=== PATIENT | male | born 1950 | race African-American/Black ===

== ENCOUNTER 2017-06-18 12:10 | Emergency (ER) | payer MEDICARE ==
[~2017-06-18] VITALS: Ht 182.9 cm; Wt 91.0 kg
[2017-06-18 12:12] VITALS: Ht 182.9 cm; Wt 91.0 kg
[2017-06-18] MEDS ORDERED: LOSA25TA5 PO (13:16)
[2017-06-18] MEDS ORDERED: SILD25TA5 PO (13:16)
[2017-06-18] MEDS ORDERED: FURO-110 PO (13:16)
--- NOTE | 2017-06-18 13:47 | ERD ---
ER Documentation Chief Complaint Date/Time DATE: 06/18/17 TIME: 13:43 Chief Complaint pt requesting medication refill HPI 67 year old male with a history of mitral valve regurgitation, Requesting medication refill for furosemide, also losartan, and he takes sildenafil as needed. Patient states that due to recent insurance change, he is not able see a occupational safety specialist and needs a repeat refill of these medications in the meantime. He denies chest pain, dizziness, shortness of breath, palpitations, syncope. ROS All systems reviewed and are negative except as per history of present illness. Medications Home Meds Active Scripts Sildenafil Citrate* (Viagra*) 25 Mg Tablet, 25 MG PO DAILY Y for relations, #20 TAB Prov:ANTONINO RICHARDSON PA-C 06/18/17 Losartan Potassium* (Losartan Potassium*) 25 Mg Tablet, 25 MG PO BID, #60 TAB Prov:ANTONINO RICHARDSON PA-C 06/18/17 Furosemide* (Lasix*) 20 Mg Tablet, 20 MG PO DAILY, #30 TAB Prov:ANTONINO RICHARDSON PA-C 06/18/17 Allergies Allergies: Coded Allergies: No Known Allergy (Unverified , 06/18/17) PMhx/Soc History of Surgery: Yes (Tonsillectomy, knee replacement.) Hx Cardiac Disorders: Yes (Mitral valve regurgitation) Physical Exam Vitals Vital Signs Date Time Temp Pulse Resp B/P Pulse Ox O2 Delivery O2 Flow Rate FiO2 06/18/17 12:12 97.8 73 18 111/69 100 Physical Exam General: Well-developed, well-nourished. The patient appears in no acute distress. HEENT: Head is normocephalic, atraumatic. No scleral icterus. Pupils are equal , round, and reactive. Oral mucous membranes are moist. No pharyngeal erythema. Neck: Supple. Nontender. Lungs: Clear to auscultation. Normal air movement. Heart: Regular rate and rhythm. S1 and S2 are normal. No murmurs, gallops, or rubs. Abdomen: Soft, nontender, nondistended. Bowel sounds are normoactive. Extremities: No clubbing or cyanosis. Normal pulses. Moving extremities x 4. No weakness. Neurologic: Alert and oriented 3. No focal deficits. Skin: Normal turgor. No rash or lesions. Procedures/MDM 67-year-old male comes in for medication refill, patient will be given frusemide , as well as losartan. He is aware that the sildenafil can lower blood pressure , and before sexual activity he is to discontinue the losartan 1-2 days prior. This was discussed with his occupational safety specialist previously and he understands that he is to take these medications in a safe manner. He is aware that he needs to follow-up with cardiology, he will be given a list of primary care follow-up as well as referral information occupational safety specialist. Departure Diagnosis: Primary Impression: Mitral valve regurgitation Additional Impression: Encounter for medication refill Condition: Good Patient Instructions: Taking Medicine Safely, Heart Valve Problems: Mitral Insufficiency, Sildenafil Citrate Oral tablet Referrals: REYNOLD PAZ [facility] YOU HAVE RECEIVED A MEDICAL SCREENING EXAM AND THE RESULTS INDICATE THAT YOU DO NOT HAVE A CONDITION THAT REQUIRES URGENT TREATMENT IN THE EMERGENCY DEPARTMENT. FURTHER EVALUATION AND TREATMENT OF YOUR CONDITION CAN WAIT UNTIL YOU ARE SEEN IN YOUR DOCTORS OFFICE WITHIN THE NEXT 1-2 DAYS. IT IS YOUR RESPONSIBILITY TO MAKE AN APPOINTMENT FOR FOLOW-UP CARE. IF YOU HAVE A PRIMARY DOCTOR --you should call your primary doctor and schedule an appointment IF YOU DO NOT HAVE A PRIMARY DOCTOR YOU CAN CALL OUR PHYSICIAN REFERRAL HOTLINE AT IF YOU CAN NOT AFFORD TO SEE A PHYSICIAN YOU CAN CHOSE FROM THE FOLLOWING [facility] [address] [facility]. [facility] [address] [facility] [facility] [address] [facility] [facility] [address] [facility]. [facility] [address] [facility] [facility]. [address] [facility]. [facility] YOU HAVE RECEIVED A MEDICAL SCREENING EXAM AND THE RESULTS INDICATE THAT YOU DO NOT HAVE A CONDITION THAT REQUIRES URGENT TREATMENT IN THE EMERGENCY DEPARTMENT. FURTHER EVALUATION AND TREATMENT OF YOUR CONDITION CAN WAIT UNTIL YOU ARE SEEN IN YOUR DOCTORS OFFICE WITHIN THE NEXT 1-2 DAYS. IT IS YOUR RESPONSIBILITY TO MAKE AN APPOINTMENT FOR FOLOW-UP CARE. IF YOU HAVE A PRIMARY DOCTOR --you should call your primary doctor and schedule and appointment IF YOU DO NOT HAVE A PRIMARY DOCTOR YOU CAN CALL OUR PHYSICIAN REFERRAL HOTLINE AT . IF YOU CAN NOT AFFORD TO SEE A PHYSICIAN YOU CAN CHOSE FROM THE FOLLOWING [facility] INSTITUTIONS: [facility] [address] [place] [address] [facility] [address] [place] [address] [facility] [address] [place] [address] [facility] URGENT CARE/SPECIALTIES Additional Instructions: [employer]: YOU HAVE A MEDICAL CONDITION WHICH REQUIRES YOU TO SEE A SPECIALIST WITHIN THE NEXT 1 WEEK. PLEASE FOLLOW UP WITH YOUR PRIMARY PHYSICIAN FOR REFFERAL.IF YOU DO NOT HAVE A PRIMARY CARE PHYSICIAN AND/OR YOU CAN NOT AFFORD TO SEE A PHYSICIAN THE FOLLOWING RESOURCES HAVE BEEN SUPPLIED TO YOU. IT IS YOUR RESPONSIBILITY TO BE SEEN BY THE SPECIALIST ANTONINO RICHARDSON PA-C Jun 18, 2017 13:47
== END 2017-06-18 13:46 | disposition home or self-care (01) ==
LOC: FTE 12:10
DX: I34.0 Nonrheumatic mitral (valve) insufficiency (principal); Z96.659 Presence of unspecified artificial knee joint
CPT/HCPCS: 99281

== ENCOUNTER 2018-07-30 12:08 | Emergency (ER) | END 2018-07-30 16:30 | disposition home or self-care (01) ==